=== PATIENT | male | born 1950 | race Caucasian/White ===

== ENCOUNTER 2017-12-10 11:53 | Day surgery (SDC) | payer MEDICARE, BC ==
[2017-12-10] MEDS ORDERED: Lactated Ringers 1,000 ML IV SCH (12:00)
[2017-12-10] MEDS ORDERED: Sodium Chloride 0.9% 10 ML Syringe FLUSH PRN (12:00)
[2017-12-10] MEDS ORDERED: Midazolam 1 MG/ML 2 ML SDV ONE ×2 (13:13→13:14)
[2017-12-10] MEDS ORDERED: Propofol 200 MG/20 ML SDV ONE ×2 (13:13→13:14)
--- NOTE | 2017-12-10 13:17 | PCM.PN ---
- General Info Date of Service: 12/10/17 - Review of Systems Systems Review Comment:: 67-year-old male with history of colon polyps here for surveillance colonoscopy. He is medically stable to proceed today with no significant recent changes in his health status. His recent history and physical is reviewed. I have discussed the proposed colonoscopy with the patient. He understands indications options and risks and agrees to proceed. - Patient Data Vitals - Most Recent: Last Vital Signs Temp 98.3 F 12/10/17 12:26 Pulse 91 12/10/17 12:26 Resp 20 12/10/17 12:26 BP 128/87 12/10/17 12:26 Pulse Ox 97 12/10/17 12:26 Weight - Most Recent: 86.183 kg Med Orders - Current: Current Medications Lactated Ringer's (Ringers, Lactated) 1,000 mls @ 125 mls/hr IV ASDIRECTED MENDEZ Last Admin: 12/10/17 12:52 Dose: 125 mls/hr Sodium Chloride (Saline Flush) 10 ml FLUSH ASDIRECTED PRN PRN Reason: Keep Vein Open Discontinued Medications Midazolam HCl (Versed 1 Mg/Ml) Confirm Administered Dose 2 mg .ROUTE .STK-MED ONE Stop: 12/10/17 13:14 Propofol (Diprivan 20 Ml) Confirm Administered Dose 400 mg .ROUTE .STK-MED ONE Stop: 12/10/17 13:14 - Problem List Review Problem List Initiated/Reviewed/Updated: Yes - My Orders Last 24 Hours: My Active Orders 12/10/17 12:00 Patient Status [ADT] Routine Peripheral IV Care [RC] . DIRECTED Verify Patient Consent Obtain [RC] ASDIRECTED Lactated Ringers [Ringers, Lactated] 1,000 ml IV ASDIRECTED Sodium Chloride 0.9% [Saline Flush] 10 ml FLUSH ASDIRECTED PRN Peripheral IV Insertion Adult [OM.PC] Routine - Assessment Assessment:: History of colon polyps - Plan Plan:: Colonoscopy
--- NOTE | 2017-12-10 13:51 | PCM.OPNOTE ---
- General Post-Op/Procedure Note Date of Surgery/Procedure: 12/10/17 Operative Procedure(s): Colonoscopy with polypectomy Findings: Small rectal polyp Otherwise normal appearing: Pre Op Diagnosis: History of colon polyps Post-Op Diagnosis: Colon polyp Anesthesia Technique: MAC Primary Surgeon: Mohamud Gil Pathology: Rectal polyp Output, Urine Amount: 0 EBL in mLs: 0 Complications: None Condition: Good
--- NOTE | 2017-12-10 16:17 | OR ---
Date of Procedure: 12/10/2017 PREOPERATIVE DIAGNOSIS: History of colon polyps. POSTOPERATIVE DIAGNOSIS: Rectal polyp. OPERATION PERFORMED: Colonoscopy with polypectomy. INDICATIONS FOR SURGERY: This 67-year-old male has a known history of colon polyps and he comes for surveillance colonoscopy. FINDINGS: A single polyp was noted during the exam today. This was a 5 mm sessile polyp noted in the rectum, 5 cm from the anal verge. The remainder of the colon appeared normal. DESCRIPTION OF PROCEDURE: The patient was taken to the operating room. He was given intravenous sedation, and with him in the left lateral decubitus position, digital rectal exam was performed showing no rectal masses. The Olympus colonoscope was inserted into the rectum and retroflexed examination of the rectal canal was performed. In the rectum, the above-described polyp was identified. It was removed with a cautery snare and retrieved into a polyp trap. The scope was then carefully advanced under direct visualization through the entire length of the colon until the cecum was reached. Cecal acquisition did require hand pressure, but was eventually able to be safely accomplished. Cecal acquisition was confirmed by noting the normal internal cecal anatomy including the appendiceal orifice and ileocecal valve and identifying the light to transilluminate the abdominal wall in the right lower quadrant. After examining the cecum, the scope was slowly withdrawn sequentially re-examining the colonic segments until the entire colon and rectum had been fully examined. The scope was then removed and the patient was taken from the operating room in satisfactory condition. ESTIMATED BLOOD LOSS: Zero. COMPLICATIONS: None. PROGNOSIS: Good. JEANMARIE Gil MD /[id number]
== END 2017-12-10 14:57 | disposition home or self-care (01) ==
LOC: LL.SDS 11:53
PROVIDERS: ATTEND Surgery
DX: Z12.11 Encounter for screening for malignant neoplasm of colon (principal); K62.1 Rectal polyp; E78.5 Hyperlipidemia, unspecified; E03.9 Hypothyroidism, unspecified; E78.00 Pure hypercholesterolemia, unspecified; N40.0 Benign prostatic hyperplasia without lower urinary tract symptoms; I65.22 Occlusion and stenosis of left carotid artery; Z86.010 Personal history of colon polyps; Z86.73 Personal history of transient ischemic attack (TIA), and cerebral infarction without residual deficits; Z79.899 Other long term (current) drug therapy; Z88.0 Allergy status to penicillin
CPT/HCPCS: 00811; 45385; 88305; J2250; J2704; J7120